=== PATIENT | male | born 1940 | race Hispanic/Latino ===

== ENCOUNTER 2017-05-12 14:48 | Emergency (ER) | payer MEDICARE, OTHER ==
[2017-05-12 14:48] VITALS: BMI 26.6
[2017-05-12 14:55] VITALS: BP 138/69; PULSE 71; RESP 20; TEMP 98.6; O2SAT 98
--- NOTE | 2017-05-12 15:24 | C.PDOC ---
History Of Present Illness A 76 year old male, whose past medical history includes anxiety, back problems, diabetes, and hypertension, presents to the emergency department for anxiety, which is chronic, but has worsened this morning. The patient admits that he has had many prior evaluations for anxiety and the patient refuses to follow up with an outpatient psychiatrist and his primary doctor. The patient denies any chest pain, abdominal pain, palpitations, nausea, vomiting or any other complaints at this time. Time Seen by Provider: 05/12/17 15:12 Chief Complaint (Nursing): Anxiety History Per: Patient History/Exam Limitations: no limitations Onset/Duration Of Symptoms: Hrs (x earlier this morning) Current Symptoms Are (Timing): Still Present Suicide/Self Injury Attempted (Context): None Modifying Factor(s): None Severity: None Associated Symptoms: Anxiety Past Medical History Reviewed: Historical Data, Nursing Documentation, Vital Signs Vital Signs: Last Vital Signs Temp 98.6 F 05/12/17 14:54 Pulse 71 05/12/17 14:54 Resp 20 05/12/17 14:54 BP 138/69 05/12/17 14:54 Pulse Ox 98 05/12/17 17:34 - Medical History PMH: Anxiety, Back Problems, Diabetes, HTN Denies: Hepatitis, HIV, Seizures, Sexually Transmitted Disease - [facility] INJECT/INFUSE NEC (05/03/07) Family History: States: Unknown Family Hx - Social History Hx Tobacco Use: No Hx Alcohol Use: No Hx Substance Use: No - Immunization History Hx Tetanus Toxoid Vaccination: No Hx Influenza Vaccination: No Hx Pneumococcal Vaccination: No Review Of Systems Except As Marked, All Systems Reviewed And Found Negative. Cardiovascular: Negative for: Chest Pain, Palpitations Gastrointestinal: Negative for: Nausea, Vomiting, Abdominal Pain Physical Exam - Physical Exam Appears: Non-toxic, No Acute Distress, Other (anxious; elderly; heavy welsh acent ) Skin: Normal Color, Warm, Dry Head: Atraumatic, Normacephalic Eye(s): bilateral: Normal Inspection, PERRL, EOMI Nose: Normal Throat: Normal Neck: Normal Cardiovascular: Rhythm Regular Respiratory: Normal Breath Sounds Gastrointestinal/Abdominal: Normal Exam Back: Normal Inspection Extremity: Normal ROM Neurological/Psych: Oriented x3, Normal Speech, Normal Cognition ED Course And Treatment O2 Sat by Pulse Oximetry: 98 Medical Decision Making Medical Decision Making: chronic anxiety, refuses to f/u w opt psych/ Dr. Walker declined Rx's for psych meds in ED- many prior evals for same. pt prefers referral to [facility] Treatment Plan: -- Xanax Progress Notes: Disposition Doctor Will See Patient In The: Office Counseled Patient/Family Regarding: Studies Performed, Diagnosis - Disposition [facility] [Outside] [facility] [Outside] [facility] [Outside] [facility] [Outside] Ryan Walker MD [Non-Staff] - Disposition: HOME/ ROUTINE Disposition Time: 15:23 Condition: GOOD Additional Instructions: Please seek outpatient follow-up for your anxiety issues through our [facility] or [facility] The Emergency Department may NOT prescribe/refill chronic psych meds. Instructions: Anxiety (ED) Forms: [facility] (Danish) - Clinical Impression Clinical Impression: Anxiety - Scribe Statement The provider has reviewed the documentation as recorded by the Scribe Shagufta Wylie All medical record entries made by the Scribe were at my direction and personally dictated by me. I have reviewed the chart and agree that the record accurately reflects my personal performance of the history, physical exam, medical decision making, and the department course for this patient. I have also personally directed, reviewed, and agree with the discharge instructions and disposition.
== END 2017-05-12 15:31 | disposition home or self-care (01) ==
LOC: C.ER 14:48
DX: F41.9 Anxiety disorder, unspecified (principal)